=== PATIENT | female | born 1980 | race African-American/Black ===

== ENCOUNTER 2020-05-03 21:27 | Emergency (ER) | payer OTHER, SELFPAY ==
[2020-05-03 21:29] VITALS: BP 130/112; PULSE 90; RESP 20; TEMP 36.3; O2SAT 100
[2020-05-03] MEDS: diphenhydrAMINE HCl INJ 50 MG/ML VIAL IV PUSH (22:01)
[2020-05-03] MEDS: FAMOTIDINE 20 MG/2 ML VIAL IV PUSH (22:03)
[2020-05-03] MEDS: methylPREDNISolone SOD SUCC 125 MG VIAL IV PUSH (22:03)
--- NOTE | 2020-05-03 22:17 | ED.GENADULT ---
HPI - General Adult General Chief complaint: Allergic Reaction Stated complaint: allergic reaction Time Seen by Provider: 05/03/20 21:35 History of Present Illness HPI narrative: Patient 39-year-old female who presents the emergency department with complaint of urticaria. The patient reports that she drank some tea the other day and has noticed that she has had itching and hives over her body since then. The patient denies shortness of breath denies angioedema. Patient reports has not had problems with allergic reactions before in the past. Related Data Home Medications Medication Instructions Recorded Confirmed gabapentin 300 mg PO BID 05/03/20 05/03/20 tramadol 50 mg PO Q6H PRN 05/03/20 05/03/20 Allergies Allergy/AdvReac Type Severity Reaction Status Date / Time No Known Allergies Allergy Verified 05/03/20 21:55 Review of Systems Review of Systems: Narrative: A 10 system review of systems was completed on the patient and is negative except for what is stated in the HPI. Nursing and ancillary documentation was reviewed. PMFSH Social History Social History Gender identity (if verbalized by the patient): Female Comments Patient denies past medical history Social history the patient denies illicit drug use Exam Narrative: Exam Narrative: GENERAL: Well-appearing, well-nourished, and in no acute distress. HEAD: Normocephalic, atraumatic. EYES: PERRLA and EOMI. ENT: Nares clear, no rhinorrhea or epistaxis. Mucous membranes moist. NECK: Supple. CHEST: Clear to auscultation. No respiratory distress. HEART: Regular rate and rhythm. No murmur heard. Normal peripheral pulses. ABDOMEN: Soft, nontender, nondistended, normal active bowel sounds. EXTREMITIES: Normal range of motion. No edema. SKIN: Warm, dry, generalized urticaria. NEURO: No focal deficits. Alert and oriented x3. PSYCH: Normal mood and affect. Course Vital Signs Vital signs: Vital Signs Temperature 36.3 C L 05/03/20 21:29 Pulse Rate 90 05/03/20 21:29 Respiratory Rate 20 05/03/20 21:29 Blood Pressure 130/112 H 05/03/20 21:29 Pulse Oximetry 100 05/03/20 21:29 Temperature 36.3 C L 05/03/20 21:29 Pulse Rate 90 05/03/20 21:29 Respiratory Rate 20 05/03/20 21:29 Blood Pressure 130/112 H 05/03/20 21:29 Pulse Oximetry 100 05/03/20 21:29 Medical Decision Making Vital Signs Vital Signs: Vital Signs Temperature 36.3 C L 05/03/20 21:29 Pulse Rate 90 05/03/20 21:29 Respiratory Rate 05/03/20 21:29 Blood Pressure 130/112 H 05/03/20 21:29 Pulse Oximetry 100 05/03/20 21:29 Temperature 36.3 C L 05/03/20 21:29 Pulse Rate 90 05/03/20 21:29 Respiratory Rate 05/03/20 21:29 Blood Pressure 130/112 H 05/03/20 21:29 Pulse Oximetry 100 05/03/20 21:29 Discharge Plan Discharge Clinical Impression: Urticaria Patient Disposition: Home, Self-Care Condition: Stable Instructions: Antibiotic Form, Urticaria (ED), General Allergic Reaction (ED) Prescriptions: New prednisone 20 mg tablet 40 mg PO DAILY 5 Days Qty: 10 RF: 0 No Action tramadol 50 mg Tablet 50 mg PO Q6H PRN (Reason: Pain) RF: 0 gabapentin 300 mg Tablet 300 mg PO BID RF: 0 Follow-up/Referrals: PHYSICIAN,[employer] [Primary Care Provider] - Jessica Menchaca DO [Physician] - Time of Disposition: 22:25
[2020-05-03 22:44] VITALS: BP 134/98; PULSE 85; RESP 16; O2SAT 100
== END 2020-05-03 22:45 | disposition home or self-care (01) ==
PROVIDERS: Emergency Provider Emergency Medicine
DX: L50.9 Urticaria, unspecified (principal)
CPT/HCPCS: 96374; 96375; 99284; J1200; J2930